=== PATIENT | female | born 1960 | race Caucasian/White ===

== ENCOUNTER 2022-08-20 08:50 | Outpatient (REF) | payer OTHER, SELFPAY ==
--- NOTE | ~2022-08-20 | XR_ITS ---
EXAMINATION: XR SHOULDER, RIGHT CLINICAL INFORMATION: Right shoulder pain status post fall 3 COMPARISON: None available. TECHNIQUE: 3 views of of the right shoulder. FINDINGS: There is no acute fracture or dislocation. The right glenohumeral and acromioclavicular joints are unremarkable. The visualized right ribs are intact. An ovoid nodule overlies the right infraclavicular region measuring 3.2 cm. XR/XR shoulder RT min 2V IMPRESSION: 1. No acute right shoulder abnormality. 2. Ovoid nodule overlying the right infraclavicular region is nonspecific. The exact location cannot be determined, but this could represent an enlarged lymph node. Further evaluation with physical exam and targeted soft tissue ultrasound is recommended.
== END 2022-08-20 08:51 | disposition home or self-care (01) ==
LOC: HO.HMGCX 08:50
PROVIDERS: Visit Provider Internal Medicine
DX: S49.91XA Unspecified injury of right shoulder and upper arm, initial encounter (principal); W19.XXXA Unspecified fall, initial encounter
CPT/HCPCS: 73030